=== PATIENT | female | born 1985 | race Caucasian/White ===

== ENCOUNTER → 2019-06-24 12:45 | Outpatient (CLI) | payer BC, SELFPAY ==
--- NOTE | 2019-06-24 12:56 | US_ITS ---
PROCEDURE: US BREAST RT COMPLETE CLINICAL INDICATION: RT BREAST MASS COMPARISON: No exams were available for comparison FINDINGS: Multiple sonographic images were obtained targeted to the area of palpable abnormality at the 8 to 9 o'clock position. There is no discrete cystic or solid lesion. Incidental note is made of a 1.4 centimeter axillary lymph node with fatty hilum. IMPRESSION: BI-RADS category 1-negative. Consider mammogram for additional imaging assessment. Dictated by: Domenico Dallas 06/24/2019 13:48 Electronically signed by Domenico Dallas in [place] 06/24/2019 13:48
--- NOTE | 2019-06-24 13:53 | MM_ITS ---
PROCEDURE: MM DIG MAMM BI DX W/CAD CLINICAL INDICATION: right breast lump COMPARISON: Ultrasound exam 06/24/2019 TECHNIQUE: Standard CC and MLO images and 3D Tomosynthesis was obtained. Focal cone compression views over area of palpable abnormality were also performed in the CC and MLO projections. R2 CAD reviewed. FINDINGS: The breasts are heterogeneously dense. Skin markers were utilized to denote area of palpable abnormality. There is no discrete solid mass. There are no suspicious clustered microcalcifications to suggest malignancy. There is a somewhat circumscribed radiolucency in the superior and lateral aspect of the right breast measuring up to 2.8 x 2.2 centimeters traversed by a septation. No sonographic correlate could be confirmed with ultrasound targeted to the palpable abnormality. The appearance is suggestive of a benign lipoma. Benign appearing lymph nodes project over the pectoral muscles. IMPRESSION: BI-RAD Category: 2 Benign Finding(s) FOLLOW-UP: 1YR 1 Year Follow-up If desired further imaging assessment could be attempted with [facility]. (A letter has been sent to the patient regarding results of the study.) Dictated by: Domenico Dallas 06/25/2019 08:31 Electronically signed by Domenico Dallas in [facility] 06/25/2019 08:31
== END ==
PROVIDERS: Visit Provider Physician Assistant
DX: N63.10 Unspecified lump in the right breast, unspecified quadrant (principal)
CPT/HCPCS: 76641; 77062; 77066; G0279